=== PATIENT | male | born 1995 | race Caucasian/White ===

== ENCOUNTER 2024-11-13 03:28 | Inpatient (IN) | payer OTHER, MEDICAID ==
[~2024-11-13] VITALS: Ht 165.1 cm; Wt 68.5 kg
[2024-11-13 03:43] VITALS: O2SAT 99
[2024-11-13 04:00] VITALS: BP 125/69; PULSE 85; RESP 18; TEMP 36.6; O2SAT 98
[2024-11-13 04:21] LABS: BASOPHILS % 0.2 % (0.0-2.0); EOSINOPHILS % 0.6 % (0.0-5.0); HEMATOCRIT. 46.0 % (42.0-52.0); HEMOGLOBIN. 15.5 g/dL (14.0-18.0); LYMPHOCYTES % 11.8 % (20.0-50.0); MEAN PLATELET VOLUME 8.6 fl (7.4-10.4); MONOCYTES % 4.5 % (2.0-8.0); NEUTROPHILS % 82.9 % (40.0-76.0); PLATELET 312 x1000/uL (130-400); RED BLOOD CELL COUNT 4.89 mill/uL (4.7-6.1); RED CELL DISTRIBUTION WIDTH 13.8 % (11.6-14.6)
[2024-11-13] MEDS: KETOROLAC 15MG/ML VIAL IV ONE (04:26)
[2024-11-13] MEDS: ONDANSETRON HCL 4MG/2ML INJ IV ONE ×2 (04:26→05:35)
[2024-11-13 04:30] LABS: CREATININE 1.0 mg/dL (0.6-1.3)
[2024-11-13 04:31] LABS: UREA NITROGEN BLOOD 16 mg/dL (9-23)
[2024-11-13] MEDS: SODIUM CHLORIDE 0.9% 1,000 ML IV ONE (04:31)
[2024-11-13 04:32] LABS: ASPARTATE AMINOTRANSFERASE 17 IU/L (<34)
[2024-11-13 04:33] LABS: BILIRUBIN DIRECT 0.2 mg/dL (<=3.0); BILIRUBIN TOTAL 0.5 mg/dL (0.1-1.0); PROTEIN TOTAL 7.4 g/dL (6.0-8.3)
[2024-11-13 05:05] LABS: CLARITY URINE CLEAR (CLEAR); COLOR URINE YELLOW (YELLOW); GLUCOSE URINE NEGATIVE (NEGATIVE); KETONES URINE TRACE (NEGATIVE); LEUKOCYTE ESTERASE URINE NEGATIVE (NEGATIVE); NITRITE URINE NEGATIVE (NEGATIVE); OCCULT BLOOD URINE 2+ (NEGATIVE); PH URINE 5.5 (4.5-8.0); PROTEIN URINE NEGATIVE (NEGATIVE); SPECIFIC GRAVITY URINE 1.027 (1.005-1.030); UROBILINOGEN URINE 0.2 E.U./dL (0.2-1.0)
[2024-11-13] MEDS: TAMSULOSIN HCL 0.4MG SR CAPSULE PO ONE (05:34)
[2024-11-13] MEDS: MORPHINE SULFATE 4 MG/ML INJ (FOR IV/IM USE) IV ONE (05:35)
[2024-11-13 06:13] LABS: SQUAMOUS EPITHELIAL CELL URINE FEW /lpf (RARE/1+)
[2024-11-13 06:14] LABS: BACTERIA URINE TRACE; CALCIUM OXALATE CRYSTALS URINE 1+ /lpf; WBC URINE 0-2 /hpf (0-2)
[2024-11-13 08:00] VITALS: BP 121/69; PULSE 64; RESP 18; TEMP 37.1; O2SAT 100
[2024-11-13 10:00] VITALS: BP 123/71; PULSE 77; RESP 15; TEMP 36.8072
[2024-11-13] MEDS ORDERED: ACETAMINOPHEN 325MG TABLET PO PRN ×2 (10:45)
[2024-11-13] MEDS ORDERED: ONDANSETRON HCL 4MG/2ML INJ IV PRN (10:45)
[2024-11-13] MEDS ORDERED: IPRATROPIUM/ALBUTEROL 0.5-3(2.5)MG/3ML NEB HHN PRN (10:45)
[2024-11-13] MEDS ORDERED: CLONIDINE 0.1MG TABLET PO PRN (11:30)
[2024-11-13 12:00] VITALS: BP 108/57; PULSE 70; RESP 19; TEMP 36.6; O2SAT 98
[2024-11-13] MEDS: SODIUM CHLORIDE 0.9% 1,000 ML IV SCH (12:29)
[2024-11-13] MEDS: KCL 20MEQ/100ML PREMIX 100 ML IV SCH (12:30)
[2024-11-13] MEDS: KETOROLAC 15MG/ML VIAL IV PRN (12:35)
[2024-11-13 13:58] LABS: CREATININE 0.9 mg/dL (0.6-1.3); UREA NITROGEN BLOOD 13 mg/dL (9-23)
[2024-11-13] MEDS: TAMSULOSIN HCL 0.4MG SR CAPSULE PO SCH (16:01)
[2024-11-13] MEDS: CEFTRIAXONE 1GM/50ML 50 ML IV SCH (16:01)
[2024-11-13 20:00] VITALS: BP 117/72; PULSE 64; RESP 20; TEMP 36.6; O2SAT 100
[2024-11-13] MEDS: ENOXAPARIN 40MG/0.4ML SYR SUBCUT SCH (21:41)
[2024-11-14] VITALS: BP 109/69; PULSE 59; RESP 20; TEMP 36.8; O2SAT 96
[2024-11-14 04:00] VITALS: BP 118/68; PULSE 56; RESP 20; TEMP 36.9; O2SAT 95
[2024-11-14 06:30] LABS: BASOPHILS % 0.5 % (0.0-2.0); EOSINOPHILS % 2.5 % (0.0-5.0); HEMATOCRIT. 42.7 % (42.0-52.0); HEMOGLOBIN. 14.5 g/dL (14.0-18.0); LYMPHOCYTES % 34.3 % (20.0-50.0); MEAN PLATELET VOLUME 8.7 fl (7.4-10.4); MONOCYTES % 7.2 % (2.0-8.0); NEUTROPHILS % 55.5 % (40.0-76.0); PLATELET 234 x1000/uL (130-400); RED BLOOD CELL COUNT 4.50 mill/uL (4.7-6.1); RED CELL DISTRIBUTION WIDTH 13.6 % (11.6-14.6)
[2024-11-14 06:44] LABS: CREATININE 0.8 mg/dL (0.6-1.3); TRIGLYCERIDE 139 mg/dL (0-150); UREA NITROGEN BLOOD 12 mg/dL (9-23)
[2024-11-14 06:45] LABS: LDL CHOLESTEROL 68 mg/dL (5-100)
[2024-11-14 06:46] LABS: T4 FREE 1.19 ng/dL (0.89-1.76)
[2024-11-14 08:00] VITALS: BP 117/71; PULSE 76; RESP 19; TEMP 36.4; O2SAT 99
[2024-11-14 11:00] LABS: ASPARTATE AMINOTRANSFERASE 19 IU/L (<34); BILIRUBIN DIRECT 0.3 mg/dL (<=3.0); BILIRUBIN TOTAL 0.8 mg/dL (0.1-1.0); PROTEIN TOTAL 6.3 g/dL (6.0-8.3)
[2024-11-14 12:00] VITALS: BP 121/61; PULSE 70; RESP 18; TEMP 36.4; O2SAT 97
[2024-11-14] MEDS: DOCUSATE SODIUM 100MG CAPSULE PO PRN (14:50)
[2024-11-14] MEDS: CEFTRIAXONE 1GM/50ML 50 ML IV SCH (14:50)
[2024-11-14 16:00] VITALS: BP 121/72; PULSE 76; RESP 19; TEMP 36.6; O2SAT 98
[2024-11-14] MEDS ORDERED: KETOROLAC 15MG/ML VIAL IV PRN (16:45)
[2024-11-14 20:00] VITALS: BP 122/72; PULSE 89; RESP 18; TEMP 36.7; O2SAT 99
[2024-11-14] MEDS: DIAZEPAM 5 MG TABLET PO SCH (22:09)
[2024-11-15] VITALS: BP 119/57; PULSE 58; RESP 18; TEMP 36.5; O2SAT 98
[2024-11-15] MEDS: KETOROLAC 30MG/ML VIAL IV SCH (00:23)
[2024-11-15 08:00] VITALS: BP 112/68; PULSE 54; RESP 16; TEMP 36.5; O2SAT 96
[2024-11-15] MEDS ORDERED: IBUP-2030 PO (11:31)
[2024-11-15] MEDS ORDERED: TAMS-54 PO (11:31)
[2024-11-15] MEDS ORDERED: DIAZ5TAB4 PO (11:31)
[2024-11-15 12:00] VITALS: BP 119/73; PULSE 60; RESP 16; TEMP 36.2; O2SAT 98
[2024-11-15 12:06] VITALS: BP 119/73; PULSE 60; RESP 16; TEMP 97.2
== END 2024-11-15 14:23 | disposition home or self-care (01) | DRG 465 ==
LOC: ER 03:28 → 6EST 05:48 → EDBEDREQTM 05:52 → EDBEDREQ 05:52 → ENRESERV 06:12
PROVIDERS: ADMIT Internal Medicine; ATTEND Internal Medicine
DX: N20.2 Calculus of kidney with calculus of ureter (principal); D72.829 Elevated white blood cell count, unspecified; E05.90 Thyrotoxicosis, unspecified without thyrotoxic crisis or storm; E87.6 Hypokalemia; E86.0 Dehydration; Z60.3 Acculturation difficulty
CPT/HCPCS: 36415; 71045; 74176; 80048; 80061; 80076; 81003; 83605; 84145; 84439; 84443; 84481; 85025; 93970; 96361; 96374; 96375; 96376; 99285; J0696; J1650; J1885; J2270; J2405; J3480; J7030